=== PATIENT | female | born 1960 | race Caucasian/White ===

== ENCOUNTER 2017-06-09 12:40 | Emergency (ER) | payer MEDICAID ==
[~2017-06-09] VITALS: Ht 157.5 cm; Wt 78.0 kg
[~2017-06-09 12:40] MED LIST: MED4DP PO; NAPR-260 PO
[2017-06-09 12:44] VITALS: Ht 157.5 cm; Wt 78.0 kg
[2017-06-09 13:46] LABS: URINE BLOOD (Dip) POC Negative (NEGATIVE)
[2017-06-09 13:48] LABS: BASOPHIL # 0.1 10^3/ul (0.0-0.1); BASOPHILS % 0.6 % (0.0-2.0); EOSINOPHILS # 0.2 10^3/ul (0.0-0.5); EOSINOPHILS % 2.5 % (0.0-7.0); HEMATOCRIT 36.2 % (37.0-47.0); HEMOGLOBIN 12.2 g/dl (12.0-16.0); LYMPHOCYTES # 3.2 10^3/ul (0.8-2.9); LYMPHOCYTES % 38.9 % (15.0-51.0); MEAN CORPUSCULAR HEMOGLOBIN 29.5 pg (29.0-33.0); MEAN CORPUSCULAR HGB CONC 33.7 g/dl (32.0-37.0); MEAN CORPUSCULAR VOLUME 87.4 fl (82.0-101.0); MEAN PLATELET VOLUME 10.5 fl (7.4-10.4); MONOCYTE # 0.6 10^3/ul (0.3-0.9); MONOCYTES % 7.4 % (0.0-11.0); NEUTROPHIL # 4.1 10^3/ul (1.6-7.5); NEUTROPHILS % 50.4 % (39.0-77.0); PLATELET COUNT 281 10^3/UL (140-415); RED BLOOD COUNT 4.14 10^6/ul (4.20-5.40); RED CELL DISTRIBUTION WIDTH 12.4 % (11.5-14.5); WHITE BLOOD COUNT 8.1 10^3/ul (4.8-10.8)
[2017-06-09 14:14] LABS: ALBUMIN 4.6 g/dl (3.3-4.9); ALBUMIN/GLOBULIN RATIO 1.27; BILIRUBIN,INDIRECT 0.5 mg/dl (0-1.1); BILIRUBIN,TOTAL 0.5 mg/dl (0.2-1.3); CALCIUM 9.4 mg/dl (8.4-10.2); CREATININE 0.54 mg/dl (0.44-1.00); POTASSIUM 4.1 mmol/L (3.5-5.1); TOTAL PROTEIN 8.2 g/dl (6.1-8.1)
--- NOTE | 2017-06-09 14:33 | ERD ---
ER Documentation Chief Complaint Date/Time DATE: 06/09/17 TIME: 14:32 Chief Complaint RIGHT SHOULDER PAIN AND NECK X 1WEEK HPI Patient is a 57-year-old female with a past medical history of diabetes and hypertension who presents to the ED with mild left-sided abdominal pain 1 week. She denies fever or chills. Denies nausea, vomiting or diarrhea. States that her last bowel movement was today and denies constipation. Denies pelvic pain. Denies trauma. Denies falls. States that the pain comes and goes. She has never had this pain in the past. Has not taken any medication for her symptoms. Denies headache or dizziness. No other complaints. ROS All systems reviewed and are negative except as per history of present illness. Medications Home Meds Active Scripts Naproxen* (Naprosyn*) 500 Mg Tablet, 500 MG PO BID Y for PAIN AND/OR INFLAMMATION, #30 TAB Prov:ASHLEIGH PANCHAL PA-C 02/11/16 Methylprednisolone* (Medrol* DOSE PACK) 4 Mg/Dose-Pack Tab.ds.pk, 4 MG PO . DIRECTED, #1 PACKET Prov:ASHLEIGH PANCHAL PA-C 02/11/16 PMhx/Soc History of Surgery: Yes Anesthesia Reaction: No Hx Neurological Disorder: No Hx Respiratory Disorders: No Hx Cardiac Disorders: Yes (Hypertension) Hx Miscellaneous Medical Probl: Yes (DM) Hx Alcohol Use: No Hx Substance Use: No Hx Tobacco Use: No Smoking Status: Never smoker FmHx Family History: No coronary disease, No diabetes, No other Physical Exam Vitals Vital Signs Date Time Temp Pulse Resp B/P Pulse Ox O2 Delivery O2 Flow Rate FiO2 06/09/17 12:44 98.6 79 19 160/70 96 Physical Exam GENERAL: Well-developed, well-nourished female. Appears in no acute distress. HEAD: Normocephalic, atraumatic. EYES: Pupils are equally reactive bilaterally. EOMs grossly intact. No conjunctival erythema. ENT: Moist mucous membranes. No uvula deviation. No kissing tonsils. No exudates. NECK: Supple. No lymphadenopathy or thyromegaly. No meningismus. negative kernig. negative brudinski. LUNG: Clear to auscultation bilaterally. No rhonchi, wheezing, rales or coarse breath sounds. HEART: Regular rate and rhythm. No murmurs, rubs or gallops. ABDOMEN: No scars, ecchymosis or rashes noted. Soft, nontender, and nondistended. Positive bowel sounds in all four quadrants. No rebound tenderness , no guarding. (-) McBurneys point tenderness. No CVA tenderness. BACK: No midline tenderness. Extremities: Equal pulses bilaterally. No peripheral clubbing, cyanosis or edema. No unilateral leg swelling. NEUROLOGIC: Alert and oriented. Moving all four extremities. 5/5 strength in all extremities. Normal speech. Steady gait. SKIN: Normal color. Warm and dry. No rashes or lesions. Capillary refill < 2 seconds Result Diagram: 06/09/17 1334 06/09/17 1334 Results 24 hrs Laboratory Tests Test 06/09/17 13:34 06/09/17 13:52 White Blood Count 8.110^3/ul Red Blood Count 4.1410^6/ul Hemoglobin 12.2g/dl Hematocrit 36.2% Mean Corpuscular Volume 87.4fl Mean Corpuscular Hemoglobin 29.5pg Mean Corpuscular Hemoglobin Concent 33.7g/dl Red Cell Distribution Width 12.4% Platelet Count 60249^3/UL Mean Platelet Volume 10.5fl Neutrophils % 50.4% Lymphocytes % 38.9% Monocytes % 7.4% Eosinophils % 2.5% Basophils % 0.6% Nucleated Red Blood Cells % 0.0/100WBC Neutrophils # 4.110^3/ul Lymphocytes # 3.210^3/ul Monocytes # 0.610^3/ul Eosinophils # 0.210^3/ul Basophils # 0.110^3/ul Nucleated Red Blood Cells # 0.010^3/ul Sodium Level 142mmol/L Potassium Level 4.1mmol/L Chloride Level 103mmol/L Carbon Dioxide Level 25mmol/L Anion Gap 18 Blood Urea Nitrogen 14mg/dl Creatinine 0.54mg/dl Glucose Level 202mg/dl Calcium Level 9.4mg/dl Total Bilirubin 0.5mg/dl Direct Bilirubin 0.00mg/dl Indirect Bilirubin 0.5mg/dl Aspartate Amino Transf (AST/SGOT) 25IU/L Alanine Aminotransferase (ALT/SGPT) 40IU/L Alkaline Phosphatase 95IU/L Total Protein 8.2g/dl Albumin 4.6g/dl Globulin 3.60g/dl Albumin/Globulin Ratio 1.27 Lipase 72U/L Bedside Urine pH (LAB) 5.5 Bedside Urine Protein (LAB) Negative Bedside Urine Glucose (UA) Negative Bedside Urine Ketones (LAB) Negative Bedside Urine Blood Negative Bedside Urine Nitrite (LAB) Negative Bedside Urine Leukocyte Esterase (L Trace Procedures/MDM ER COURSE: I kept the patient and/or family informed of laboratory and diagnostic imaging results throughout the emergency room course. LAB INTERPRETATION: CBC showed no evidence of systemic infection or severe anemia. CMP showed no evidence of electrolyte abnormalities, severe acidosis, alkalosis, renal failure , or liver disease. Lipase showed no evidence of acute pancreatitis. UA showed trace leukocytes, no, nitrites or hematuria. MEDICAL DECISION MAKING: This is a 57-year-old female who presents with left-sided abdominal pain on and off 1 week. Vital signs were reviewed. Patient is afebrile. Patient is not hypoxic. I consulted with my supervising physician Dr. Moy who agrees with my medical decision making and discharge plans. Patient's abdominal pain is of unknown etiology. Low suspicion for ACS, AAA, perforated ulcer, bowel obstruction, cholecystitis, choledocholithiasis, cholangitis, pancreatitis, hepatic abscess, appendicitis, diverticulitis, gastroenteritis, hepatitis, peptic ulcer disease, HELLP syndrome. Low suspicion for splenic rupture or splenic disease. Patient's abdominal examination was unremarkable. DISCHARGE: At this time, patient is stable for discharge and outpatient management with no new complaints during the ER course. Patient was sent home with Tylenol and Pepcid and to follow-up with primary care provider. All copies of laboratory studies were given to patient.. Patient will be discharged home with instructions to recheck for new or worsening symptoms such as fever, nausea, weakness, LOC and to follow up with primary care in the next 1-2 days. Patient was advised to return to the ER for any new or worsening symptoms. Plan was discussed and patient and/or family understands and agrees. Home instructions were given. Departure Diagnosis: Primary Impression: Abdominal pain Abdominal location: left upper quadrant Qualified Code: R10.12 - Left upper quadrant pain Condition: Stable ALEX VILLARREAL PA-C Jun 09, 2017 14:33
--- NOTE | 2017-06-09 15:22 | RADRPT ---
PROCEDURE: XR Chest. CLINICAL INDICATION: Chest pain. TECHNIQUE: Anterior chest x-ray. COMPARISON: None. FINDINGS: The lungs are clear. No pleural effusion identified. There is no evidence of pneumothorax. The cardiomediastinal silhouette is unremarkable. The soft tissues are normal. There is healed fracture deformity mid shaft right clavicle. Osseous structures are otherwise unremarkable. IMPRESSION: 1. No acute disease is seen in the chest. RPTAT: QQ .Cameron Rand MD, MD Date Time Electronically viewed and signed by .Cameron Rand MD, MD on 06/09/2017 15:21 .M/
[2017-06-09 15:52] LABS: URINE BLOOD (Dip) POC Negative (NEGATIVE)
[2017-06-09] MEDS ORDERED: ACET500C5 PO (16:04)
[2017-06-09] MEDS ORDERED: FAMO-96 PO (16:04)
[2017-06-09 16:18] VITALS: BP 155/68; PULSE 70; RESP 17; TEMP 98.7
== END 2017-06-09 16:19 | disposition home or self-care (01) ==
LOC: FTE 12:40
DX: R10.12 Left upper quadrant pain (principal); E11.9 Type 2 diabetes mellitus without complications; I10 Essential (primary) hypertension
CPT/HCPCS: 36415; 71010; 80053; 81003; 83690; 85025

== ENCOUNTER 2017-06-23 12:42 | Emergency (ER) | payer MEDICAID ==
[~2017-06-23] VITALS: Ht 167.6 cm; Wt 78.0 kg
[~2017-06-23 12:42] MED LIST changes: +ACET500C5 PO; +FAMO-96 PO
[2017-06-23 12:45] VITALS: Ht 167.6 cm; Wt 78.0 kg
[2017-06-23] MEDS ORDERED: morphine 4 MG/ML VIAL IV STA (14:57)
[2017-06-23] MEDS ORDERED: ONDANSETRON 4 MG INJ IV STA (14:57)
[2017-06-23] MEDS ORDERED: SOD CHLORIDE 0.9% 1,000 ML IV STA (14:57)
[2017-06-23 15:13] LABS: BASOPHIL # 0.1 10^3/ul (0.0-0.1); BASOPHILS % 0.7 % (0.0-2.0); EOSINOPHILS # 0.2 10^3/ul (0.0-0.5); EOSINOPHILS % 2.4 % (0.0-7.0); HEMOGLOBIN 12.6 g/dl (12.0-16.0); LYMPHOCYTES # 3.9 10^3/ul (0.8-2.9); LYMPHOCYTES % 40.4 % (15.0-51.0); MEAN CORPUSCULAR HEMOGLOBIN 28.4 pg (29.0-33.0); MEAN CORPUSCULAR HGB CONC 32.3 g/dl (32.0-37.0); MEAN PLATELET VOLUME 10.6 fl (7.4-10.4); MONOCYTE # 0.6 10^3/ul (0.3-0.9); MONOCYTES % 6.4 % (0.0-11.0); NEUTROPHIL # 4.9 10^3/ul (1.6-7.5); PLATELET COUNT 300 10^3/UL (140-415); RED BLOOD COUNT 4.43 10^6/ul (4.20-5.40); RED CELL DISTRIBUTION WIDTH 12.6 % (11.5-14.5); WHITE BLOOD COUNT 9.7 10^3/ul (4.8-10.8)
[2017-06-23 15:16] LABS: ADD UMIC YES; UR ASCORBIC ACID NEGATIVE (NEGATIVE); UR BILIRUBIN (Dip) NEGATIVE (NEGATIVE); UR BLOOD (Dip) NEGATIVE (NEGATIVE); UR CLARITY CLEAR (CLEAR); UR COLOR YELLOW (YELLOW); UR GLUCOSE (Dip) NEGATIVE (NEGATIVE); UR KETONES (Dip) NEGATIVE (NEGATIVE); UR LEUKOCYTE ESTERASE (Dip) 1+ Leu/ul (NEGATIVE); UR NITRITE (Dip) NEGATIVE (NEGATIVE); UR RBC 1 /HPF (0-5); UR SPECIFIC GRAVITY (Dip) 1.016 (1.003-1.030); UR TOTAL PROTEIN (Dip) NEGATIVE (NEGATIVE); UR UROBILINOGEN (Dip) NEGATIVE (NEGATIVE)
[2017-06-23 15:29] LABS: ALBUMIN 4.7 g/dl (3.3-4.9); ALBUMIN/GLOBULIN RATIO 1.11; BILIRUBIN,INDIRECT 0.8 mg/dl (0-1.1); BILIRUBIN,TOTAL 0.8 mg/dl (0.2-1.3); CALCIUM 9.9 mg/dl (8.4-10.2); CREATININE 0.54 mg/dl (0.44-1.00); POTASSIUM 3.9 mmol/L (3.5-5.1); TOTAL PROTEIN 8.9 g/dl (6.1-8.1)
--- NOTE | 2017-06-23 16:11 | ERA ---
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 The patient describes at least 2 weeks of abdominal pain. She describes it as left-sided and right-sided, diffuse and occasionally radiating to her back. She denies any nausea vomiting chest pain or shortness of breath no dysuria urgency or frequency. The patient was seen here 2 weeks ago but did not have diagnostic imaging. ROS All systems reviewed and are negative except as per history of present illness. Medications Home Meds Active Scripts Dicyclomine Hcl* (Bentyl*) 10 Mg Capsule, 10 MG PO QID Y for abdominal cramping , #30 CAP Prov:ALEXANDRE ADDISON MD 06/23/17 Reported Medications Famotidine* (Famotidine*) 20 Mg Tablet, 20 MG PO BID, #60 TAB 06/23/17 Losartan Potassium* (Losartan Potassium*) 100 Mg Tablet, 100 MG PO DAILY, TAB 06/23/17 Metformin* (Glucophage*) 500 Mg Tab, 500 MG PO BID WITH MEALS, #30 TAB 06/23/17 Discontinued Scripts Famotidine* (Pepcid*) 20 Mg Tablet, 20 MG PO BID for 10 Days, TAB Prov:ALEX VILLARREAL PA-C 06/09/17 Acetaminophen* (Tylophen*) 500 Mg Capsule, 1 CAP PO Q6H Y for PAIN AND OR ELEVATED TEMP, #20 CAP Prov:ALEX VILLARREAL PA-C 06/09/17 Naproxen* (Naprosyn*) 500 Mg Tablet, 500 MG PO BID Y for PAIN AND/OR INFLAMMATION, #30 TAB Prov:ASHLEIGH PANCHAL PA-C 02/11/16 Methylprednisolone* (Medrol* DOSE PACK) 4 Mg/Dose-Pack Tab.ds.pk, 4 MG PO . DIRECTED, #1 PACKET Prov:ASHLEIGH PANCHAL PA-C 02/11/16 Allergies Allergies: Coded Allergies: No Known Allergy (Unverified , 06/23/17) PMhx/Soc Medical and Surgical Hx: pt denies Surgical Hx History of Surgery: Yes Anesthesia Reaction: No Hx Neurological Disorder: No Hx Respiratory Disorders: No Hx Cardiac Disorders: Yes (HTN) Hx Psychiatric Problems: No Hx Miscellaneous Medical Probl: Yes (DM2) Hx Alcohol Use: No Hx Substance Use: No Hx Tobacco Use: No Smoking Status: Never smoker FmHx Family History: No diabetes Physical Exam Vitals Vital Signs Date Time Temp Pulse Resp B/P Pulse Ox O2 Delivery O2 Flow Rate FiO2 06/23/17 12:45 98.6 78 20 189/87 99 Physical Exam General: Well developed, well nourished, no acute distress Head: Normocephalic, atraumatic. Eyes: Pupils equally reactive, EOM intact ENT: Moist mucous membranes Neck: Supple, no lymphadenopathy Respiratory: Lungs clear bilaterally, no distress Cardiovascular: RRR, no murmurs, rubs, or gallops Abdominal: Soft, mild diffuse tenderness without rebound or guarding : Deferred MSK: No edema, no unilateral swelling, 5/5 strength Neurologic: Alert and oriented, moving all extremities, normal speech, no focal weakness, no cerebellar signs Skin: No rash Psych: Normal mood Result Diagram: 06/23/17 1505 06/23/17 1505 Results 24 hrs Laboratory Tests Test 06/23/17 15:05 White Blood Count 9.710^3/ul Red Blood Count 4.4310^6/ul Hemoglobin 12.6g/dl Hematocrit 39.0% Mean Corpuscular Volume 88.0fl Mean Corpuscular Hemoglobin 28.4pg Mean Corpuscular Hemoglobin Concent 32.3g/dl Red Cell Distribution Width 12.6% Platelet Count 74817^3/UL Mean Platelet Volume 10.6fl Neutrophils % 50.0% Lymphocytes % 40.4% Monocytes % 6.4% Eosinophils % 2.4% Basophils % 0.7% Nucleated Red Blood Cells % 0.0/100WBC Neutrophils # 4.910^3/ul Lymphocytes # 3.910^3/ul Monocytes # 0.610^3/ul Eosinophils # 0.210^3/ul Basophils # 0.110^3/ul Nucleated Red Blood Cells # 0.010^3/ul Urine Color YELLOW Urine Clarity CLEAR Urine pH 5.0 Urine Specific [place] 1.016 Urine Ketones NEGATIVEmg/dL Urine Nitrite NEGATIVEmg/dL Urine Bilirubin NEGATIVEmg/dL Urine Urobilinogen NEGATIVEmg/dL Urine Leukocyte Esterase 1+Paulette/ul Urine Microscopic RBC 1/HPF Urine Microscopic WBC 5/HPF Urine Hemoglobin NEGATIVEmg/dL Urine Glucose NEGATIVEmg/dL Urine Total Protein NEGATIVEmg/dl Sodium Level 144mmol/L Potassium Level 3.9mmol/L Chloride Level 98mmol/L Carbon Dioxide Level 28mmol/L Anion Gap 22 Blood Urea Nitrogen 14mg/dl Creatinine 0.54mg/dl Glucose Level 163mg/dl Calcium Level 9.9mg/dl Total Bilirubin 0.8mg/dl Direct Bilirubin 0.00mg/dl Indirect Bilirubin 0.8mg/dl Aspartate Amino Transf (AST/SGOT) 26IU/L Alanine Aminotransferase (ALT/SGPT) 46IU/L Alkaline Phosphatase 92IU/L Total Protein 8.9g/dl Albumin 4.7g/dl Globulin 4.20g/dl Albumin/Globulin Ratio 1.11 Lipase 75U/L Current Medications Medications (Trade) Dose Ordered Sig/Iwona Route PRN Reason Start Time Stop Time Status Last Admin Dose Admin Sodium Chloride (NS) 1,000 ml @ 1,000 mls/hr Q1H STAT IV 06/23/17 14:57 06/23/17 15:56 DC 06/23/17 15:11 Morphine Sulfate (morphine) 4 mg ONCE STAT IV 06/23/17 14:57 06/23/17 14:58 DC 06/23/17 15:12 Ondansetron HCl (Zofran Inj) 4 mg ONCE STAT IV 06/23/17 14:57 06/23/17 14:58 DC 06/23/17 15:13 Procedures/MDM EKG, MONITORS, & DIAGNOSTIC IMAGING: IMPRESSION: 1. Slight decrease in the overall attenuation of the liver consistent with diffuse steatosis. 2. No evidence of urolithiasis or obstructive uropathy. 3. 1.1 cm hypodense mass in the lower third of the left kidney. This is likely a cyst. This could be confirmed with ultrasound as appropriate clinically. 4. Mild constipation. 5. No other significant intra-abdominal or pelvic process identified. LAB INTERPRETATION: No acute process noted MEDICAL DECISION MAKING: The patient has generalized abdominal pain of unclear significance. The patient 's has a mostly benign abdominal exam however this is her second visit and she did not have diagnostic imaging in the past. Differential includes bowel obstruction, acute intra-abdominal mass, hepatobiliary process but low concern for these processes. ER COURSE: The patient's laboratory testing and diagnostic imaging is unrevealing. The patient is a small renal cyst that is unlikely causing her symptoms. The patient requires outpatient GI follow-up including potential for endoscopy and colonoscopy. Bentyl will be given. Return precautions discussed. I kept the patient and/or family informed of laboratory and diagnostic imaging results throughout the emergency room course. DISPOSITION PLAN: We discussed follow up with the patient's primary care doctor within 24 to 48 hours as needed. We also discussed return to the emergency room for worsening symptoms or worsening condition. Outpatient referral: Gastroenterology Discharge Medications: Bentyl Departure Diagnosis: Primary Impression: Renal cyst Additional Impression: Abdominal pain Qualified Code: R10.84 - Generalized abdominal pain Condition: Stable ALEXANDRE ADDISON MD Jun 23, 2017 16:11
--- NOTE | 2017-06-23 16:48 | RADRPT ---
PROCEDURE: CT Abdomen and Pelvis without contrast. CLINICAL INDICATION: Abdominal pain. TECHNIQUE: CT scan of the abdomen and pelvis without contrast was performed on a multidetector hig h-resolution CT scanner. The patient was scanned without intravenous contrast. Coronal and sagittal reformatted images were obtained from the axial source images. Images were reviewed on a high-resol [employer] PACS workstation. The total exam CTDI equals 16.71 mGy and the total exam DLP equals 1000.38 m Gy-cm. One or the following dose reduction techniques were used: -Automated exposure control. -Adjustment of the mA and/or KV according to patient's size. -Use of iterative reconstruction technique. COMPARISON: None. FINDINGS: Lung Bases: Unremarkable. GI:. Unremarkable. Liver: There is a decrease in the attenuation of the liver consistent with diffuse fatty infiltratio n. Gallbladder: Unremarkable. Pancreas: Unremarkable. Spleen: Unremarkablel Adrenals: Unremarkable. Kidneys: There is no evidence of urolithiasis or obstructive uropathy. There is a 1.1 cm hypodense cortical nodule in the lower third of the left kidney. Bladder: Unremarkable. Pelvic Organs: Unremarkable. Skeleton: Normal for age. Other: N/A IMPRESSION: 1. Slight decrease in the overall attenuation of the liver consistent with diffuse steatosis. 2. No evidence of urolithiasis or obstructive uropathy. 3. 1.1 cm hypodense mass in the lower third of the left kidney. This is likely a cyst. This could be confirmed with ultrasound as appropriate clinically. 4. Mild constipation. 5. No other significant intra-abdominal or pelvic process identified. RPTAT: AACC Physician Avery Date Time Electronically viewed and signed by Physician Avery on 06/23/2017 16:48 /
[2017-06-23] MEDS ORDERED: LOSA100T7 PO (17:17)
[2017-06-23] MEDS ORDERED: METF500T4 PO (17:17)
[2017-06-23] MEDS ORDERED: FAMO20TA18 PO (17:18)
[2017-06-23] MEDS ORDERED: DICY10CA60 PO (17:21)
[2017-06-23 17:28] VITALS: BP 177/83; PULSE 76; RESP 20; TEMP 98.6
== END 2017-06-23 17:31 | disposition home or self-care (01) ==
LOC: E/R 12:42
DX: N28.1 Cyst of kidney, acquired (principal); R10.84 Generalized abdominal pain; I10 Essential (primary) hypertension; E11.9 Type 2 diabetes mellitus without complications; Z79.84 Long term (current) use of oral hypoglycemic drugs
CPT/HCPCS: 36415; 74176; 80053; 81001; 83690; 85025; 96361; 96374; 96375; J2270; J2405; J7030; Z7502